=== PATIENT | male | born 1995 | race African-American/Black ===

== ENCOUNTER 2022-11-23 12:19 | Emergency (ER) | payer OTHER ==
[~2022-11-23] VITALS: Ht 177.8 cm; Wt 71.8 kg
[2022-11-23] MEDS ORDERED: ONDANSETRON ODT 4 MG TAB PO ONE (13:45)
[2022-11-23] MEDS ORDERED: MORPHINE SULFATE 4 MG/ML SYR/VIAL IV ONE (13:45)
[2022-11-23] MEDS ORDERED: cefTRIAXone SOD 1,000 MG VL IM ONE (13:45)
[2022-11-23] MEDS ORDERED: MORPHINE SULFATE 4 MG/ML SYR/VIAL IM ONE (14:00)
[2022-11-23 14:05] VITALS: BP 112/76
[2022-11-23] MEDS ORDERED: PENI500T2 PO ×2 (14:16)
[2022-11-23] MEDS ORDERED: HYDR1TAB97 PO (14:16)
[2022-11-24] MEDS ORDERED: HYDR-4798 PO (14:33)
[2022-11-24] MEDS ORDERED: PENI500T2 PO (14:36)
== END 2022-11-23 14:23 | disposition home or self-care (01) ==
LOC: ER 12:19
DX: S02.5XXA Fracture of tooth (traumatic), initial encounter for closed fracture (principal); X58.XXXA Exposure to other specified factors, initial encounter; Y93.89 Activity, other specified; Y92.89 Other specified places as the place of occurrence of the external cause; Y99.8 Other external cause status
CPT/HCPCS: 96372; 99284; J0696; J2270; Q0162

== ENCOUNTER 2022-11-24 11:10 | Emergency (ER) | payer OTHER ==
[~2022-11-24] VITALS: Ht 177.8 cm; Wt 71.5 kg
[~2022-11-24 11:10] MED LIST: HYDR1TAB97 PO; PENI500T2 PO
[2022-11-24] MEDS ORDERED: ACETAMINOPHEN 500 MG TAB PO ONE (13:00)
[2022-11-24 14:01] VITALS: BP 133/92
[2022-11-24] MEDS ORDERED: PENICILLIN V POTASSIUM 250 MG TAB PO ONE (14:30)
[2022-11-24] MEDS ORDERED: HYDR-4798 PO (14:33)
[2022-11-24] MEDS ORDERED: PENI500T2 PO (14:36)
== END 2022-11-24 14:53 | disposition home or self-care (01) ==
LOC: ER 11:10
DX: K03.81 Cracked tooth (principal); Z79.1 Long term (current) use of non-steroidal anti-inflammatories (NSAID); Z79.899 Other long term (current) drug therapy

== ENCOUNTER 2023-03-05 12:25 | Emergency (ER) | payer OTHER ==
[~2023-03-05] VITALS: Ht 175.3 cm; Wt 70.0 kg
[~2023-03-05 12:25] MED LIST changes: +HYDR-4798 PO
[2023-03-05 13:24] VITALS: BP 115/75; RESP 20; TEMP 98; O2SAT 99
[2023-03-05] MEDS ORDERED: HYDR50CA PO ×3 (13:57→15:07)
[2023-03-05 14:20] VITALS: PULSE 67
[2023-03-05 14:40] LABS: Basophils # (auto) 0 10 ^3/uL (0-0.2); Basophils % (auto) 0.4 % (0.0-2.0); Eosinophils # (auto) 0.1 10 ^3/uL (0-0.8); Eosinophils % (auto) 0.9 % (0.0-7.0); Hematocrit 46.6 % (41.0-53.0); Hemoglobin 15.7 g/dL (13.5-17.5); Lymphocytes # (auto) 3.2 10 ^3/uL (0.4-5.4); Mean Corpuscular Hemoglobin 31.4 pg (28.0-32.0); Mean Corpuscular Hgb Conc. 33.7 g/dL (32.0-36.0); Mean Corpuscular Volume 93.1 fL (80.0-100.0); Monocytes # (auto) 0.8 10 ^3/uL (0-1.3); Monocytes % (auto) 6.4 % (0.0-12.0); Neutrophils # (auto) 7.7 10 ^3/uL (1.6-8.6); Neutrophils % (auto) 65.3 % (37.0-80.0); Nucleated Red Blood Cells % 0.1 %; Red Cell Distribution Width 13.6 % (11.8-14.3); White Blood Cell 11.7 10^3/uL (4.4-10.8)
[2023-03-05 14:49] LABS: Chloride 107 mmol/L (98-107); Potassium 4.3 mmol/L (3.5-5.1); Sodium 142 mmol/L (136-145)
[2023-03-05 14:50] LABS: Anion Gap 7 (5-15); Calcium 9.8 mg/dL (8.5-10.1); Carbon Dioxide 28 mmol/L (20-30)
[2023-03-05 14:55] LABS: BUN/Creatinine Ratio 15.2 (10.0-20.0); Blood Urea Nitrogen 16 mg/dL (9-23); Glucose 77 mg/dL (74-106)
[2023-03-05 15:05] LABS: Amphetamine Screen, Urine Neg (NEGATIVE)
[2023-03-05 15:06] LABS: Barbiturate Scree,Urine Neg (NEGATIVE); Benzodiazephine Screen, Urine Neg (NEGATIVE); Cannabinoid Screen, Urine Pos (NEGATIVE); Cocaine Screen, Urine Neg (NEGATIVE); Opiate Scree,Urine Neg (NEGATIVE); Phencyclidine Screen, Urine Neg (NEGATIVE)
== END 2023-03-05 15:05 | disposition left against medical advice (07) ==
LOC: ER 12:25
DX: F41.1 Generalized anxiety disorder (principal); R94.31 Abnormal electrocardiogram [ECG] [EKG]; R07.89 Other chest pain; Z79.899 Other long term (current) drug therapy
CPT/HCPCS: 36415; 80048; 80307; 84484; 85025; 93005

== ENCOUNTER 2023-08-30 07:47 | Emergency (ER) | payer OTHER ==
[~2023-08-30] VITALS: Ht 177.8 cm; Wt 70.0 kg
[~2023-08-30 07:47] MED LIST changes: +HYDR50CA PO
[2023-08-30] MEDS ORDERED: BENZ100C97 PO (10:11)
[2023-08-30] MEDS ORDERED: PROM1SOL4 PO (10:11)
[2023-08-30] MEDS ORDERED: POLY335015 PO (10:11)
[2023-08-30] MEDS ORDERED: ACET500T58 PO (10:11)
[2023-08-30] MEDS ORDERED: AZIT-185 PO (10:11)
[2023-08-30 10:29] VITALS: BP 136/62; PULSE 97; RESP 17; TEMP 98.9; O2SAT 100
== END 2023-08-30 10:31 | disposition home or self-care (01) ==
LOC: ER 07:47
DX: B34.9 Viral infection, unspecified (principal); R07.89 Other chest pain; R19.8 Other specified symptoms and signs involving the digestive system and abdomen
CPT/HCPCS: 71046; 93005